=== PATIENT | female | born 1990 | race Caucasian/White ===

== ENCOUNTER 2016-08-24 09:24 | Emergency (ER) | payer OTHER ==
[2016-08-24 09:44] VITALS: TEMP 98.1; BMI 49.4
[2016-08-24] MEDS ORDERED: PROMETHAZINE 25 MG TAB PO ONE (10:00)
[2016-08-24] MEDS ORDERED: ACETAMINOPHEN 325 MG/TAB TABLET PO ONE (10:08)
[2016-08-24] MEDS ORDERED: ONDANSETRON HCL 4 MG/2 ML VIAL IV ONE (10:08)
[2016-08-24] MEDS ORDERED: NS 1,000 ML IV ONE (10:08)
--- NOTE | 2016-08-24 10:12 | EDPRACDOC ---
- General Information Information Source: Patient Mode Of Arrival: Car - History of Present Illness Onset: YESTERDAY Pain Location: Reports: RUQ, RLQ Pain Context: Reports: Spontaneous Pain Severity: Mild Pain Quality: Reports: Cramping Pain Radiation: Reports: Back (lower) Last Menstrual Period: jul 06 : Yes (APPROX 7 WEEKS) : 4 Para: 2 Abortus: 1 Modifying Factors: improves with: Nothing Female Associated Signs & Symptoms: Reports: Urgency Oral Intake: Decreased Urinary Output: Decreased - General Information Chief Complaint: Abdominal Pain Stated Complaint: N/V (7 WKS PREG) Time Seen by Provider: 08/24/16 09:50 Home Medications: Home Medications Vits W-Ca,Fe,FA(<1Mg) [] 1 tab PO QHS 08/24/16 Promethazine [Phenergan] 25 mg PO Q8H PRN #20 tab 08/24/16 Allergies/Adverse Reactions: Allergies Allergy/AdvReac Type Severity Reaction Status Date / Time No Known Allergies Allergy Verified 02/18/13 16:44 - History of Present Illness HPI: MD NOTE SEEN AND EXAMINED; NO ABDOMINAL PAIN; N/V; 7 WKS PREG (Mahesh Hargrove) C/o nausea and vomiting since yesterday 1pm, unable to keep food or drink down. Pt states she is 7 weeks by home preg test. Also c/o mild intermittent RUQ, RLQ cramping that lasts a couple seconds, lower back pain, LOPEZ and dizzyness , inc urinary freq and dec urinary output. Denies fever, sob, edema, vaginal sx. Pt on Clomid. LMP Jul 06, hx of prior miscarriage at 5 week in 2016. Med hx = none. Surgical hx = none. (Shaji Go) ED Past Medical History - History Reviewed Yes Nurses notes reviewed and agree except as marked - Patient Medical History Psychological History: Denies: Depression Surgical History: Denies: Hysterectomy - Social Medical History Smoking Status: Never smoker EDM Review of Systems - Review of Systems ROS Negative Except as Marked: Yes All systems reviewed and were negative except as marked Gastrointestinal: Nausea, Pain, Vomiting Musculoskeletal: Back - Physical Exam Constitutional: No apparent distress, Alert Oriented to: Time, Person, Place - HEENT Head: Normal Eye Exam: negative: Conjunctival Injection, Scleral Icterus Oropharynx: negative: Drooling TMJ: Normal Nose: No Symptoms Reported Neck: Normal - Respiratory/Cardiovascular Respiratory: Normal - CTA Cardiovascular: Normal - GI Auscultation: Normal Palpation: Normal Tenderness: Non tender - Musculoskeletal Back: Normal Extremities: Normal - Integumentary Skin: Normal - Neurologic Mood Description: Normal Thought: Coherent Perception: Normal - Physical Exam Last recorded Vital Signs: Last Vital Signs Temp 98.1 F 08/24/16 09:38 Pulse 72 08/24/16 11:50 Resp 19 08/24/16 11:50 BP 128/74 08/24/16 11:50 Pulse Ox 100 08/24/16 11:50 Oxygen Pulse Oxygen Saturation 100 O2 Device Room Air Oxygen Flow Rate Fraction of Inspired Oxygen ( FIO2) (Mahesh Hargrove) (Shaji Go) - Results 08/24/16 10:30 08/24/16 10:30 - Results WBC 8.3 xk/uL (3.8-10.8) 08/24/16 10:30 RBC 4.63 xM/uL (4.20-5.40) 08/24/16 10:30 Hgb 13.6 g/dL (12.0-16.0) 08/24/16 10:30 Hct 40.1 % (36-47) 08/24/16 10:30 MCV 87 fL (81-99) 08/24/16 10:30 MCH 29.4 pg (27-32) 08/24/16 10:30 MCHC 34.0 g/dl (33-36) 08/24/16 10:30 RDW 14.1 % (11.5-14.5) 08/24/16 10:30 Plt Count 312 xk/uL (130-400) 08/24/16 10:30 MPV 7.2 fL (7.4-10.4) L 08/24/16 10:30 Neut % (Auto) 76.7 % (45-76) H 08/24/16 10:30 Lymph % (Auto) 17.7 % (17-44) 08/24/16 10:30 Mckenzie % (Auto) 4.9 % (3-10) 08/24/16 10:30 Eos % (Auto) 0.2 % (0-5) 08/24/16 10:30 Baso % (Auto) 0.5 % (0-2) 08/24/16 10:30 Absolute Neuts (auto) 6.31 xk/uL (1.7-8.2) 08/24/16 10:30 Absolute Lymphs (auto) 1.41 xk/uL (0.65-4.75) 08/24/16 10:30 Sodium 138 mEq/L (137-146) 08/24/16 10:30 Potassium 4.0 mEq/L (3.5-5.1) 08/24/16 10:30 Chloride 105 mEq/L (98-107) 08/24/16 10:30 Carbon Dioxide 22 mMOL/L (22-33) 08/24/16 10:30 Anion Gap 15 mEq/L (8-16) 08/24/16 10:30 BUN 8 MG/DL (7-17) 08/24/16 10:30 Creatinine 0.70 MG/DL (0.52-1.04) 08/24/16 10:30 Estimated GFR (MDRD) > 60 mL/min (>=60) 08/24/16 10:30 Glucose 91 MG/DL (70-99) 08/24/16 10:30 Calculated Osmolality 264 MOs/Kg (270-290) L 08/24/16 10:30 Calcium 9.7 MG/DL (8.4-10.2) 08/24/16 10:30 Total Bilirubin 0.6 MG/DL (0.2-1.3) 08/24/16 10:30 AST 33 IU/L (14-36) 08/24/16 10:30 ALT 74 IU/L (9-52) H 08/24/16 10:30 Alkaline Phosphatase 73 IU/L (38-126) 08/24/16 10:30 Total Protein 8.1 G/DL (6.3-8.2) 08/24/16 10:30 Albumin 4.6 G/DL (3.5-5.0) 08/24/16 10:30 Beta HCG, Quant 53460.3 mIU/mL (<5) 08/24/16 10:30 Urine Color Yellow 08/24/16 11:50 Urine Clarity Clear 08/24/16 11:50 Urine pH 7.0 (5.0-8.0) 08/24/16 11:50 Ur Specific [place] 1.005 (1.003-1.035) 08/24/16 11:50 Urine Protein Neg (NEG/TRACE) 08/24/16 11:50 Urine Glucose (UA) Neg (NEGATIVE) 08/24/16 11:50 Urine Ketones 1+ (NEGATIVE) H 08/24/16 11:50 Urine Occult Blood Neg (NEG/TRACE) 08/24/16 11:50 Urine Nitrite Neg (NEGATIVE) 08/24/16 11:50 Urine Bilirubin Neg (NEGATIVE) 08/24/16 11:50 Urine Urobilinogen <2.0 MG/DL (0-1) 08/24/16 11:50 Ur Leukocyte Esterase 2+ (NEGATIVE) H 08/24/16 11:50 Urine RBC 5-10 (0-5) H 08/24/16 11:50 Urine WBC 20-30 (0-5) H 08/24/16 11:50 Ur Epithelial Cells 1+ 08/24/16 11:50 Urine Bacteria Few (NEG/FEW) 08/24/16 11:50 Urine Test Pos (NEGATIVE) H 08/24/16 11:50 Lab Results 08/24/16 08/24/16 08/24/16 11:50 11:50 10:30 WBC RBC Hgb Hct MCV MCH MCHC RDW Plt Count MPV Neut % (Auto) Lymph % (Auto) Mckenzie % (Auto) Eos % (Auto) Baso % (Auto) Absolute Neuts (auto) Absolute Lymphs (auto) Sodium Potassium Chloride Carbon Dioxide Anion Gap BUN Creatinine Estimated GFR (MDRD) Glucose Calculated Osmolality Calcium Total Bilirubin AST ALT Alkaline Phosphatase Total Protein Albumin Beta HCG, Quant 72223.3 Urine Color Yellow Urine Clarity Clear Urine pH 7.0 Ur Specific [place] 1.005 Urine Protein Neg Urine Glucose (UA) Neg Urine Ketones 1+ H Urine Occult Blood Neg Urine Nitrite Neg Urine Bilirubin Neg Urine Urobilinogen <2.0 Ur Leukocyte Esterase 2+ H Urine RBC 5-10 H Urine WBC 20-30 H Ur Epithelial Cells 1+ Urine Bacteria Few Urine Test Pos H 08/24/16 08/24/16 10:30 10:30 WBC 8.3 RBC 4.63 Hgb 13.6 Hct 40.1 MCV 87 MCH 29.4 MCHC 34.0 RDW 14.1 Plt Count 312 MPV 7.2 L Neut % (Auto) 76.7 H Lymph % (Auto) 17.7 Mckenzie % (Auto) 4.9 Eos % (Auto) 0.2 Baso % (Auto) 0.5 Absolute Neuts (auto) 6.31 Absolute Lymphs (auto) 1.41 Sodium 138 Potassium 4.0 Chloride 105 Carbon Dioxide 22 Anion Gap 15 BUN 8 Creatinine 0.70 Estimated GFR (MDRD) > 60 Glucose 91 Calculated Osmolality 264 L Calcium 9.7 Total Bilirubin 0.6 AST 33 ALT 74 H Alkaline Phosphatase 73 Total Protein 8.1 Albumin 4.6 Beta HCG, Quant Urine Color Urine Clarity Urine pH Ur Specific [place] Urine Protein Urine Glucose (UA) Urine Ketones Urine Occult Blood Urine Nitrite Urine Bilirubin Urine Urobilinogen Ur Leukocyte Esterase Urine RBC Urine WBC Ur Epithelial Cells Urine Bacteria Urine Test Decision Time to Discharge: 11:37 - Departure Disposition: Home Education/Counseling Given To: Patient Education/Counseling Given Regarding: Diagnosis, Treatment, Prognosis, Follow Up - Departure Condition: Stable Final Diagnosis: Hyperemesis gravidarum Instructions: Hyperemesis Gravidarum (ED) Referrals: Amber Gill PA [Primary Care Provider] - One Week Prescriptions: New Promethazine [Phenergan] 25 mg PO Q8H PRN #20 tab PRN Reason: Nausea/Vomiting No Action Vits W-Ca,Fe,FA(<1Mg) [] 1 tab PO QHS Additional Instructions: Follow up with your [facility]. Return to ED for any new or worsening symptoms.
[2016-08-24 10:49] LABS: AUTOMATED BASOPHIL 0.5 % (0-2); AUTOMATED EOSINOPHIL 0.2 % (0-5); AUTOMATED LYMPH 17.7 % (17-44); AUTOMATED MONOCYTE 4.9 % (3-10); AUTOMATED NEUTROPHIL 76.7 % (45-76); MPV 7.2 fL (7.4-10.4)
[2016-08-24 10:58] LABS: BLOOD UREA NITROGEN 8 MG/DL (7-17); CALCIUM 9.7 MG/DL (8.4-10.2); CALCULATED OSMOLALITY 264 MOs/Kg (270-290); CHLORIDE 105 mEq/L (98-107); GLUCOSE 91 MG/DL (70-99); SODIUM LEVEL 138 mEq/L (137-146); TOTAL PROTEIN 8.1 G/DL (6.3-8.2)
[2016-08-24 11:50] VITALS: BP 128/74; PULSE 72
[2016-08-24 12:09] LABS: LEUKOCYTES/URINE 2+ (NEGATIVE); NITRITE/URINE NEG (NEGATIVE); URINE OCCULT BLOOD NEG (NEG/TRACE); WBC/URINE 20-30 (0-5)
== END 2016-08-24 10:53 | disposition home or self-care (01) ==
LOC: ED 09:24
DX: O21.0 Mild hyperemesis gravidarum (principal); Z3A.01 Less than 8 weeks gestation of pregnancy
CPT/HCPCS: 36415; 80053; 81001; 81025; 84702; 85025; 96361; 96374; 99284; J2405; J3490